=== PATIENT | male | born 1985 ===

== ENCOUNTER 2024-12-12 09:02 | Outpatient (AMB) | payer OTHER, SELFPAY ==
--- NOTE | 2024-12-12 09:05 | MHC.OFFVIS ---
Vital Signs 12/12/24 09:20 Height 5 ft 9 in Weight 321 lb 6.943 oz BMI 47.5 BP 132/76 Blood Pressure Location Rt brachial Position Sitting Pulse 86 Pulse Source Pulse Oximeter Pulse Oximetry (%) 95 Oxygen Delivery Method Room Air Intake Visit Reasons: Rectal bleeding Intake Note: NEW PATIENT for initial eval rectal bleeding. Prior hx of colo/egd? N Chief Complaint; C/O BRB per rectum, hx of hemorrhoids w/ hemorrhoidectomy. Pt reports constipation and hemorrhoids worsening lately despite treatment per PCP. GERD well controlled w/ PPI. Instrumentation Tech Required: No Accompanied by: Significant Other Allergies lisinopril Adverse Reaction (Mild, Verified 12/12/24 09:09) Cough Medication List - Last Reconciled 12/12/24 by TERRANCE Suarez dulaglutide (Trulicity) mg subcut ferrous sulfate 324 mg PO DAILY losartan mg PO DAILY metformin mg PO BID pantoprazole mg PO DAILY HPI HPI Rectal bleeding: Details: 39-year-old male with past medical history of diabetes, hyperlipidemia, hypertension, GERD, anxiety is here today for initial consultation. Patient is accompanied by his . Patient reports abdominal pain and cramping, constipation were no bowel movements for 2-3 days. Patient was given stool softener by PCP. Worked for 2-3 days and then he continues to be constipated. Blood in the stool after bowel movement. History of hemorrhoidectomy over a decade ago. Patient also reports acid reflux on pantoprazole. Patient reports that his symptoms are well controlled when he takes it. Patient does admit occasional acid reflux depending on what he eats. Patient reports family history of CRC. Paternal grandfather was diagnosed with colorectal cancer and prostate cancer. [facility] Medical History (Updated 12/12/24 @ 09:32 by TERRANCE Suarez) Internal hemorrhoid Anxiety and depression GERD (gastroesophageal reflux disease) Proteinuria HLD (hyperlipidemia) HTN (hypertension) Diabetes mellitus Surgical History History of appendectomy H/O hemorrhoidectomy Family History Paternal Grandfather Prostate cancer Social History Alcohol intake: former Patient Tobacco Use Status: Former Tobacco user Use of substances other than those prescribed or required for medical reasons: Unknown Review of Systems Const Denies weight gain and Denies weight loss ENT Reports no additional complaints, Denies dysphagia and Denies odynophagia Card Reports no additional complaints Resp Reports no additional complaints GI Denies abdominal pain, Denies belching, Denies melena, Denies bloating, Denies change in bowel habits, Denies dysphagia, Denies excessive flatus, Denies dyspepsia, Denies heartburn, Denies diarrhea, Denies loose stools, Denies nausea, Denies odynophagia and Denies vomiting Reports no additional complaints Musc Reports no additional complaints Neuro Reports no additional complaints Psych Reports no additional complaints Endo Reports no additional complaints Physical Exam Vital Signs: Last Vital Signs Pulse 86 12/12/24 09:20 BP 132/76 12/12/24 09:20 Pulse Ox 95 12/12/24 09:20 Oxygen Delivery Method Room Air 12/12/24 09:20 BMI result Body Mass Index 47.5 Const General: healthy appearing and no acute distress Nutritional Appearance: obese Orientation/consciousness: patient oriented x3 Resp Effort & Inspection: normal respiratory effort, able to speak in complete sentences, no tracheal deviation and symmetric chest movement Auscultation: clear to auscultation bilaterally Cardio Rate: regular rate GI Inspection: Yes normal to inspection, No distended and Yes obesity Palpation (GI): Soft to palpation, not firm, nontender and No hepatosplenomegaly present Auscultation: normal bowel sounds General: Yes no CVA tenderness Back/Spine/Pelvis Back: no CVA tenderness Skin General skin exam: elasticity normal, turgor normal and dry skin Neuro General: patient oriented x3 Psych Appearance: grossly normal Mental Status: mental status grossly normal Assessment & Plan Assessment & Plan (1) Internal hemorrhoid: Code(s): K64.8 - Other hemorrhoids Category: Medical (2) Rectal bleed: Code(s): K62.5 - Hemorrhage of anus and rectum (3) GERD (gastroesophageal reflux disease): Code(s): K21.9 - Gastro-esophageal reflux disease without esophagitis Qualifiers: Esophagitis presence: esophagitis presence not specified Qualified Code(s): K21.9 - Gastro-esophageal reflux disease without esophagitis (4) Constipation: Code(s): K59.00 - Constipation, unspecified Qualifiers: Constipation type: slow transit constipation Qualified Code(s): K59.01 - Slow transit constipation (5) Postprandial abdominal bloating: Code(s): R14.0 - Abdominal distension (gaseous) Plan Patient will continue taking omeprazole daily. Avoid dietary triggers and late night snacking. Staying upright for minimum 3 hours after meals discussed with patient. Patient was encouraged to start taking Dulcolax daily. Increase fluid intake and activity to promote better bowel motility. Patient reports epigastric pain occasionally will send him to check transglutaminase to rule out celiac. Will check thyroid study, check vitamin-D, B12 and folate. Script for Proctosol send. Patient will return in 2 months we will discuss going for colonoscopy. Both patient and his are agreeable to plan of care and verbalizes understanding of instructions. They were given the opportunity to ask questions and all questions answered. Thank you for allowing me to participate in his care. Orders: Orders Transglutaminase IgA Today R10.9 - Unspecified abdominal pain TSH reflex Free T4 Today K59.00 - Constipation, unspecified Vitamin D 25-OH (D2 and D3) Today E55.9 - Vitamin D deficiency, unspecified Vitamin B12 and Folate Today R19.7 - Diarrhea, unspecified Medications: New bisacodyl (Dulcolax (bisacodyl)) 10 mg (2 x 5 mg) PO BEDTIME 180 tabs 4RF hydrocortisone 2.5% (Proctosol HC) 1 appl [place] BID-QID PRN 30 grams 2RF hemorrhoids K64.9 - Unspecified hemorrhoids Coding Level of Care Code New Pt Level 4 (40119) Diagnoses Internal hemorrhoid K64.8 Rectal bleed K62.5 Gastroesophageal reflux disease, unspecified whether esophagitis present K21.9 Esophagitis presence: esophagitis presence not specified Slow transit constipation K59.01 Constipation type: slow transit constipation Postprandial abdominal bloating R14.0 Time Spent (min) 45 Comment 35 minutes spent with patient and additional 10 minutes spent reviewing his records
[2024-12-12 09:20] VITALS: BP 132/76; PULSE 86; O2SAT 95; BMI 47.5
== END 2024-12-12 09:26 | disposition home or self-care (01) ==
PROVIDERS: PCP Physician Assistant Medical; Visit Provider Nurse Practitioner Family
DX: K64.8 Other hemorrhoids (principal); K62.5 Hemorrhage of anus and rectum; K21.9 Gastro-esophageal reflux disease without esophagitis; K59.01 Slow transit constipation; R14.0 Abdominal distension (gaseous)
CPT/HCPCS: 99204

== ENCOUNTER → 2024-12-12 09:02 | Outpatient (BNVA) | payer OTHER, SELFPAY | PROVIDERS: PCP Physician Assistant Medical; Visit Provider Nurse Practitioner Family ==

== ENCOUNTER 2024-12-16 10:53 | Outpatient (REF) | payer OTHER, SELFPAY ==
[2024-12-16 12:56] LABS: TSH reflex Free T4 4.32 uIU/mL (0.32-4.0)
[2024-12-16 13:13] LABS: Folate 11.8 ng/mL (> or = 4.0); Vitamin B12 387 pg/mL (200-900)
[2024-12-16 13:42] LABS: Free T4 (Free Thyroxine) 1.02 ng/dL (0.71-1.85)
[2024-12-21 13:53] LABS: Transglutaminase IgA <1.0 U/mL
[2024-12-22 13:38] LABS: Vitamin D 25-OH, D2 <4 ng/mL; Vitamin D 25-OH, D3 17 ng/mL; Vitamin D 25-OH, Total 17 ng/mL (30-100)
== END 2024-12-16 10:54 | disposition home or self-care (01) ==
LOC: HO.LAB 10:53
PROVIDERS: PCP Internal Medicine; Visit Provider Nurse Practitioner Family
DX: K59.00 Constipation, unspecified (principal); R10.9 Unspecified abdominal pain; R19.7 Diarrhea, unspecified; E55.9 Vitamin D deficiency, unspecified
CPT/HCPCS: 36415; 82306; 82607; 82746; 84439; 84443; 86364

== ENCOUNTER 2025-03-15 16:00 | Outpatient (AMB) | payer OTHER, SELFPAY ==
--- NOTE | 2025-03-15 16:10 | A.OFFVIS_ITS ---
Vital Signs 03/15/25 16:19 Height 5 ft 9 in Weight 321 lb BMI 47.4 BP 136/86 Blood Pressure Location Rt brachial Position Sitting Pulse 90 Pulse Source Pulse Oximeter Pulse Oximetry (%) 96 Oxygen Delivery Method Room Air Intake Visit Reasons: f/u gerd cons internal hem Intake Note: Established patient for mgmt of GERD + Constipation w/ hemorrhoids. CC: C.O. persistence of rectal bleeding despite current tx plan. Pt does report improvements of constipation and GERD with current tx. No additional sx or concerns at this time. Network Systems Consultant Required: No Accompanied by: Spouse Allergies lisinopril Adverse Reaction (Mild, Verified 03/15/25 16:10) Cough HPI HPI f/u gerd cons internal hem: Details: LAST VISIT: Internal hemorrhoid Rectal bleed GERD (gastroesophageal reflux disease) Constipation Postprandial abdominal bloating Plan Patient will continue taking omeprazole daily. Avoid dietary triggers and late night snacking. Staying upright for minimum 3 hours after meals discussed with patient. Patient was encouraged to start taking Dulcolax daily. Increase fluid intake and activity to promote better bowel motility. Patient reports epigastric pain occasionally will send him to check transglutaminase to rule out celiac. Will check thyroid study, check vitamin-D, B12 and folate. Script for Proctosol send. Patient will return in 2 months we will discuss going for colonoscopy. Both patient and his are agreeable to plan of care and verbalizes understanding of instructions. They were given the opportunity to ask questions and all questions answered. ? Thank you for allowing me to participate in his care. Orders Orders Transglutaminase IgA Today R10.9 TSH reflex Free T4 Today K59.00 Vitamin D 25-OH (D2 and D3) Today E55.9 Vitamin B12 and Folate Today R19.7 Medications New bisacodyl (Dulcolax (bisacodyl)) 10 mg (2 x 5 mg) PO BEDTIME 180 tabs 4RF hydrocortisone 2.5% (Proctosol HC) 1 appl [place] BID-QID PRN 30 grams 2RF hemorrhoids K64.9 TODAY'S VISIT Patient is here today for follow-up. Patient reports to be feeling fairly you well since last seen. Patient is taking omeprazole and reports that for the most part his symptoms of acid reflux are suppressed. He is trying to avoid dietary triggers. States that Dulcolax is working for him. Patient is moving his bowels better now. He reports to have occasional blood in the stool. Patient denies straining or having hard stools. Patient denies melena. Denies any family history of CRC. No issues with anesthesia in the past. Not on any anticoagulation medication. No history of sleep apnea. [facility] Medical History (Updated 03/16/25 @ 20:10 by Iliana Deglado [facility]) Constipation Internal hemorrhoid Anxiety and depression GERD (gastroesophageal reflux disease) Proteinuria HLD (hyperlipidemia) HTN (hypertension) Diabetes mellitus Surgical History History of appendectomy H/O hemorrhoidectomy Family History Paternal Grandfather Prostate cancer Social History Alcohol intake: former Patient Tobacco Use Status: Former Tobacco user Review of Systems Const Denies weight gain and Denies weight loss ENT Reports no additional complaints, Denies dysphagia and Denies odynophagia Card Reports no additional complaints Resp Reports no additional complaints GI Denies abdominal pain, Denies belching, Denies melena, Denies bloating, Reports hematochezia (Occasional), Denies change in bowel habits, Denies dysphagia, Denies excessive flatus, Denies dyspepsia, Denies heartburn, Denies diarrhea, Denies loose stools, Denies nausea, Denies odynophagia and Denies vomiting Reports no additional complaints Musc Reports no additional complaints Neuro Reports no additional complaints Psych Reports no additional complaints Endo Reports no additional complaints Physical Exam Vital Signs: Last Vital Signs Pulse 90 03/15/25 16:19 BP 136/86 03/15/25 16:19 Pulse Ox 96 03/15/25 16:19 Oxygen Delivery Method Room Air 03/15/25 16:19 BMI result Body Mass Index 47.4 Const General: healthy appearing and no acute distress Nutritional Appearance: obese Orientation/consciousness: patient oriented x3 Resp Effort & Inspection: normal respiratory effort, able to speak in complete sentences, no tracheal deviation and symmetric chest movement Auscultation: clear to auscultation bilaterally Cardio Rate: regular rate GI Inspection: Yes normal to inspection, No distended and Yes obesity Palpation (GI): Soft to palpation, not firm, nontender and No hepatosplenomegaly present Auscultation: normal bowel sounds General: Yes no CVA tenderness Back/Spine/Pelvis Back: no CVA tenderness Skin General skin exam: elasticity normal, turgor normal and dry skin Neuro General: patient oriented x3 Psych Appearance: grossly normal Mental Status: mental status grossly normal Results Reviewed Results Reviewed: Laboratory Tests 12/16/24 11:17 Vitamin B12 387 25-OH Vitamin D Total 17 L Folate 11.8 TSH 4.32 H Free T4 1.02 Tiss Transglutamin IgA <1.0 Assessment & Plan Assessment & Plan (1) Internal hemorrhoid: Code(s): K64.8 - Other hemorrhoids Category: Medical (2) GERD (gastroesophageal reflux disease): Code(s): K21.9 - Gastro-esophageal reflux disease without esophagitis Category: Medical Qualifiers: Esophagitis presence: esophagitis presence not specified Qualified Code(s): K21.9 - Gastro-esophageal reflux disease without esophagitis (3) Constipation: Code(s): K59.00 - Constipation, unspecified Category: Medical Qualifiers: Constipation type: slow transit constipation Qualified Code(s): K59.01 - Slow transit constipation (4) Rectal Hemorrhage: Code(s): K62.5 - Hemorrhage of anus and rectum Plan Patient will continue with omeprazole. Continue avoiding dietary triggers and late night snacking. Will order upper endoscopy to re-evaluate for gastritis, esophagitis, Barretts. Patient will be sent for colonoscopy as he continues to have occasional rectal bleeding. Denies any family history of CRC. Will also refer him to General surgery to evaluate his hemorrhoids to see if he qualifies for hemorrhoidectomy. Patient denies any issues with anesthesia in the past. No history of sleep apnea. Not on any anticoagulation medication. What to expect before during and after procedure discussed with patient. Stressed the importance of good bowel prep and clear liquid diet day before procedure. I will see patient after the procedure, sooner on as needed basis. He is agreeable to this plan and verbalizes understanding of instructions. He was given the opportunity to ask questions and all questions answered. Thank you for allowing me to participate in his care Orders: Referrals General Surgery Referral K64.8 - Other hemorrhoids Medications: New polyethylene glycol 3350 (Miralax) As directed by gastroenterology department at [facility] 238 grams PO ONCE 238 grams 0RF Z12.11 - Encounter for screening for malignant neoplasm of colon Coding Level of Care Code Est Pt Level 4 (83971) Complex EM visit Add On G2211 Diagnoses Internal hemorrhoid K64.8 Gastroesophageal reflux disease, unspecified whether esophagitis present K21.9 Esophagitis presence: esophagitis presence not specified Slow transit constipation K59.01 Constipation type: slow transit constipation Rectal Hemorrhage K62.5 Time Spent (min) 35 Comment 25 minutes spent with patient and additional 10 minutes spent reviewing his records
[2025-03-15 16:19] VITALS: BP 136/86; PULSE 90; O2SAT 96; BMI 47.4
--- OUTSIDE RECORDS SUMMARY | 2025-03-15 18:36 | XMS_ITS | Clinical Summary ---
Author Organization [facility] [address] [facility] lding Address [address] [place] [address] Phone Care Team Providers Care Crosscutter Name Role Phone Usama Gonzalez MD Primary Care Provider [phone] Allergies Active Allergy Reactions Criticality Noted Date Comments Lisinopril Cough High 11/12/2023 Cannot sleep Medications blood-glucose meter kit Check sugars twice daily 06/22/20 20 Active ONETOUCH ULTRASOFT LANCETS MISC Inject 1 Device into the skin 2 times daily as needed (to test blood sugars). Use to check blood sugar levels. 07/20/20 20 Active OneTouch Ultra Test test strip USED TO CHECK BLOOD SUGAR LEVELS TWICE DAILY. 09/18/20 20 Active bisacodyL (DULCOLAX) 5 mg EC tablet Take 2 tablets by mouth right before your first dose of liquid prep. 07/20/20 23 Active pantoprazole (PROTONIX) 20 mg EC tablet TAKE 1 TABLET BY MOUTH DAILY 90 tablet 3 08/15/20 24 Active dulaglutide (Trulicity) 1.5 mg/0.5 mL pen injector injectionIndicat ions:Type 2 diabetes mellitus without complication, without long-term current use of insulin ([facility] V24, CMS/HCC V28) Inject 0.5 mL (1.5 mg total) under the skin 1 (one) time per week. 6 mL 1 09/02/20 24 Active docusate sodium (Colace) 100 mg capsuleIndicatio ns:Constipation, unspecified constipation type Take 1 capsule (100 mg total) by mouth 2 (two) times a day if needed for constipatio n. 180 each 09/02/20 24 Active ferrous sulfate 324 mg (65 mg elemental iron) EC tablet TAKE 1 TABLET BY MOUTH EVERY DAY 90 tablet 1 09/27/19 25 Active metFORMIN (GLUCOPHAGE) 1,000 mg tablet TAKE 1 TABLET BY MOUTH TWICE DAILY WITH MEALS 180 tablet 1 10/07/19 25 Active losartan (COZAAR) 25 mg tablet Take 2 tablets (50 mg total) by mouth 1 (one) time each day. 90 tablet 1 02/02/20 25 Active naproxen (NAPROSYN) 250 mg tablet TAKE 1 TABLET BY MOUTH TWICE DAILY WITH MEALS FOR 14 DAYS 28 tablet 03/06/20 25 Active naproxen (NAPROSYN) 250 mg tablet Take 1 tablet (250 mg total) by mouth 2 (two) times a day with meals for 14 days. 28 tablet 02/02/20 25 025 Discontinued Active Problems Problem Noted Date Diagnosed Date Gastroesophageal reflux disease without esophagi tis 04/11/2022 Proteinuria 06/22/2020 Hypertension 06/21/2020 Morbid obesity ([facility] V24, [facility] V28) 2019 Type 2 diabetes mellitus ([facility] V24, [facility] V 28) 06/21/2020 Depression with anxiety 02/24/2012 Overview (08/08/2024): Goes to [facility]- sees counsellor Gabriella Higgins Encounters Date Type Department Care Team Description 02/01/2025 2:30 PM EDT Office Visit Adult Medicine [facility] [address] [place] [address] Marie Xiong NP Primary hypertension (Primary Dx); Dislocation of temporomandibular joint, initial encounter; Type 2 diabetes mellitus without complication, without long-term current use of insulin ([facility] V24, [facility] V28); Gastroesophageal reflux disease without esophagitis 01/30/2025 Telephone Adult Medicine [facility] [address] [place] [address] Usama Gonzalez MD Hypertension from Last 3 Months Immunizations Name Administration Dates Next Due Influenza Quadravalent, MDCK , 0.5ml, preservative free (Flucelvax) 6mo and older 06/21/2020 Influenza trivalent, 0.5mL, preservative free (Fluarix; FluLaval; Fluzone) ages 6mo and older (Afluria) 3 years and older 06/13/2022 Influenza trivalent, with pr eservative (Fluzone; Afluria) 6mo and older 07/08/2024 Tdap Tetanus diptheria acell ular pertussis (Boostrix; Adacel) 7yo and older 11/12/2023,02/24/2012 Surgical History Surgery Date Site/Laterality Comments OTHER SURGICAL HISTORY 2010 PROCEDURE: [facility] HEMORRHOIDECTOMY XTRNL 2/> COLUMN/GROUP APPENDECTOMY PROCEDURE: HISTORICAL APPENDECTOMY; COMMENT: age 7 yr Medical History Medical History Date Comments Rectal bleeding DX:Rectal bleedi ng Blood in stool DX:Blood in stoo l History of hemorrhoidectomy DX:H istory of hemorrhoidectomy Diabetes mellitus type 2, co ntrolled, with complications (CMS/HCC V24, CMS/HCC V28) DX:Diabetes mellitus type 2, controlled, with complications ([facility]) Essential hypertension DX:Essent ial hypertension Family History Medical History Relation Name Comments Other: Healthy Brother 1 X3 Diabetes Father Depression Depression Mother HTN, anxiety Colon cancer Paternal Grandfather Other: cognitive delay Son 1 Relation Name Status Comments Brother 1 Brother 2 Alive X3 Father Alive Maternal Grandfather Alive Maternal Grandmother Alive Mother Alive Paternal Grandfather Paternal Grandmother Alive Son 1 Son 2 Alive Son 3 Alive Social History Tobacco Use Types Packs/Day Years Used Date Smoking Tobacco: Former Cigarettes Q uit: 09/21/2001 Smokeless Tobacco: Never Tobacco Cessation:Counseling Given: Not Answered Alcohol Use Standard Drinks/Week Comments No 0 (1 standard drink = 0.6 oz pur e alcohol) Housing Instability Answer Date Recorde d Are you worried that in the next 2 months you may not have stable housing? No 01/31/2025 Food Access & Nutrition Answer Date Rec orded Do you have access to a vari ety of food including fruits and vegetables? Yes 01/31/2025 Health Literacy Answer Date Recorded How often do you need to hav e someone help you when you read instructions, pamphlets, or other written material from your doctor or pharmacy? Sometimes 01/31/2025 Caregiver: How often do you need to have someone help you when you read instructions, pamphlets, or other written material from your doctor or pharmacy? Not on file 01/31/2025 Financial Risk Answer Date Recorded How hard is it for you to pa y for the very basics like food, housing, medical care, and air conditioning / heating? Very hard 01/31/2025 Transportation Answer Date Recorded Has the lack of transportati on kept you from meetings, work, or from getting things needed for daily living? No Has the lack of transportati on kept you from medical appointments or from getting medications? No 01/31/2025 Social Isolation Answer Date Recorded How often do you feel lonely or isolated from th ose around you? Never 01/31/2025 Food Risk Answer Date Recorded Within the past 12 months we worried whether our food would run out before we got money to buy more. Never true 01/31/2025 Within the past 12 months th e food we bought just didn't last and we didn't have money to get more. Never true 01/31/2025 Dependent Care Answer Date Recorded Do you need help finding or paying for care for your loved ones. For example, salesperson children's shoes or elderly care for an older adult? No 01/31/2025 Education Answer Date Recorded Do you think completing more education or training, like finishing a GED, going to college, or learning a trade, would be helpful for you? N/A 01/31/2025 Employment and Income Answer Date Recor ded During the last four weeks, have you been actively looking for work? No 01/31/2025 Living Situation Answer Date Recorded What is your living situation? 0 01/31/2025 Sex and Gender Information Value Date Recorded Sex Assigned at Not on file Legal Sex Male 4:32 AM EST Gender Identity Not on file Sexual Orientation Not on file Obstetrics History Last Filed Vital Signs Vital Sign Reading Time Taken Comments Blood Pressure 120/78 02/01/2025 2:17 PM EDT Pulse 100 02/01/2025 2:17 PM EDT Temperature 36.2 C (97.1 F) 02/01/2025 2:17 PM EDT Respiratory Rate - - Oxygen Saturation - - Inhaled Oxygen Concentration - - Weight 139 kg (306 lb) 02/01/2025 2:17 PM EDT Height 177.8 cm (5' 10 ) 02/01/2025 2:17 PM EDT Body Mass Index 43.91 02/01/2025 2:17 PM EDT Plan of Treatment Upcoming Encounters Date Type Department Care Team (Late st Contact Info) Description 04/03/2025 8:30 AM EDT Office Visit Adult Medicine - [place] [address] [place] [place] [id number] Danette Cruz PA [address] [place] [address] Health Maintenance Due Date Last Done Comments Diabetes: Annual Retina Eye Exam 1994 Hepatitis B Vaccines (1 of 3 - 19+ 3-dose series) 2003 Pneumococcal Vaccine: Pediatrics (0 to 5 Years) and At-Risk Patients (6 to 64 Years) (2 of 2 - PCV) 07/11/2017 07/11/2016 HIV Screening 08/30/2022 Hepatitis C Screening 08/30/2022 COVID-19 Vaccine ( season) 2024 10/03/2021, 02/28/2021, 01/31/2021 Diabetes: Annual Urine Albumin-Creatinine Ratio (uACR) 11/12/2024 11/12/2023 Diabetes: Annual Foot Exam 11/12/2024 11/12/2023 Diabetes: Blood Sugar Control Test (HGBA1C) 03/03/2025 09/02/2024, 03/16/2024, 03/16/2024 Diabetes: Annual GFR (Glomerular Filtration Rate) 09/02/2025 09/02/2024, 11/12/2023 Hypertension/CHF/CAD Annual BMP Blood Test 09/02/2025 09/02/2024, 11/12/2023 Depression Screening 01/31/2026 01/31/2025 Social Influencers of Health Screening 01/31/2026 01/31/2025 Cholesterol Screening (Lipid Panel) 09/02/2029 09/02/2024, 11/12/2023 DTaP,Tdap,and Td Vaccines (3 - Td or Tdap) 11/12/2033 11/12/2023, 02/24/2012 Influenza Vaccine Completed 07/08/2024, , 06/13/2022, Additional history exists HIB Vaccines Aged Out No longer eligi ble based on patient's age to complete this topic HPV Vaccines Aged Out No longer eligi ble based on patient's age to complete this topic Hepatitis A Vaccines Aged Out No long er eligible based on patient's age to complete this topic IPV Vaccines Aged Out No longer eligi ble based on patient's age to complete this topic MMR Vaccines Aged Out No longer eligi ble based on patient's age to complete this topic Meningococcal ACWY Vaccine Aged Out N o longer eligible based on patient's age to complete this topic Meningococcal B Vaccine Aged Out No l onger eligible based on patient's age to complete this topic RSV Immunization Patients Under 20 months Aged Out No longer eligible based on patient's age to complete this topic Varicella Vaccines Aged Out No longer eligible based on patient's age to complete this topic Procedures Procedure Name Priority Date/Time Associated Diagnosis Comments BASIC METABOLIC PANEL Routine 09/02/2024 10:32 AM EST Type 2 diabetes mellitus without complication, without long-term current use of insulin ([facility] V24, [facility] V28) Primary hypertension HEMOGLOBIN A1C Routine 09/02/2024 10:32 AM EST Type 2 diabetes mellitus without complication, without long-term current use of insulin ([facility] V24, [facility] V28) LIPID PANEL WITH REFLEX TO DIRECT LDL Routine 09/02/2024 10:32 AM EST Type 2 diabetes mellitus without complication, without long-term current use of insulin ([facility] V24, [facility] V28) URINE ALBUMIN CREATININE RATIO Routine 11/12/2023 DIABETES FOOT EXAM Routine 11/12/2023 from Last 3 Months or Most Recently Relevant to Health Maintenance Results * (ABNORMAL) Lipid panel with reflex to direct LDL (09/02/2024 10:32 AM EST) [facility] Cholesterol 146 0 - 200 mg/dL LAB CHEMISTRY METHOD 09/02/2024 12:32 PM EST [facility] Triglycerides 130 0 - 150 mg/dL LAB CHEMISTRY METHOD 09/02/2024 12:32 PM EST [facility] HDL 38(L) >=40 mg/dL LAB CHEMISTRY METHOD 09/02/2024 12:32 PM [facility] LDL Calculated 82 0 - 100 mg/dL LAB CHEMISTRY METHOD 09/02/2024 12:32 PM [facility] VLDL Cholesterol Jonh 26 mg/dL LAB CHEMISTRY METHOD 09/02/2024 12:32 PM [facility] Non HDL Chol. (LDL+VLDL) 108 <145 mg/dL LAB CHEMISTRY METHOD 09/02/2024 12:32 PM [facility] Chol/HDL Ratio 3.8 0.0 - 4.4 LAB CHEMISTRY METHOD 09/02/2024 12:32 PM [facility] Blood Venous blood specimen / Unknown Venipuncture / Unknown 09/02/2024 10:32 AM EST 09/02/2024 10:32 AM EST us [facility] LAB BLOOD ORDERABLES Final Result [facility] [address] [place] [address], [place] [phone] * Hemoglobin A1c (09/02/2024 10:32 AM EST) Hemoglobin A1C 5.8 <6.5 % LAB CHEMISTRY METHOD 09/02/2024 2:14 PM [facility] Mean Bld Glu Estim. 120 mg/dL LAB CHEMISTRY METHOD 09/02/2024 2:14 PM [facility] Blood Venous blood specimen / Unknown Venipuncture / Unknown 09/02/2024 10:32 AM EST 09/02/2024 10:32 AM EST us [facility] LAB BLOOD ORDERABLES Final Result [facility] [address] [place] [address], * (ABNORMAL) Basic metabolic panel (09/02/2024 10:32 AM EST) Sodium 141 133 - 145 mmol/L LAB CHEMISTRY METHOD 09/02/2024 12:32 PM EST [facility] Potassium 4.2 3.5 - 5.5 mmol/L LAB CHEMISTRY METHOD 09/02/2024 12:32 PM [facility] Chloride 106 96 - 110 mmol/L LAB CHEMISTRY METHOD 09/02/2024 12:32 PM [facility] CO2 28 21 - 32 mmol/L LAB CHEMISTRY METHOD 09/02/2024 12:32 PM [facility] Anion Gap 7 3 - 11 LAB CHEMISTRY METHOD 09/02/2024 12:32 PM [facility] Glucose 101(H) 70 - 100 mg/dL LAB CHEMISTRY METHOD 09/02/2024 12:32 PM [facility] BUN 17 5 - 25 mg/dL LAB CHEMISTRY METHOD 09/02/2024 12:32 PM [facility] Creatinine 0.73 0.70 - 1.30 mg/dL LAB CHEMISTRY METHOD 09/02/2024 12:32 PM [facility] eGFR 118 >=60 mL/min/1. 73m2 LAB CHEMISTRY METHOD 09/02/2024 12:32 PM [facility] Comment:Calculation based on the Chronic Kidney Disease Epidemiology Collaboration (CKD-EPI) equation refit without adjustment for race. BUN/Creatinine Ratio 23.3 LAB CHEMISTRY METHOD 09/02/2024 12:32 PM [facility] Calcium 9.1 8.5 - 10.5 mg/dL LAB CHEMISTRY METHOD 09/02/2024 12:32 PM [facility] Blood Venous blood specimen / Unknown Venipuncture / Unknown 09/02/2024 10:32 AM EST 09/02/2024 10:32 AM EST [facility] LAB BLOOD ORDERABLES Final Result [facility] [address] [place] [address], [place] [phone] * Urine Albumin Creatinine Ratio (11/12/2023) Urine Albumin Creatinine Ratio Abstracted Historical Provider MD HEALTH MAINTENANCE Final Result * Diabetes Foot Exam (11/12/2023) Diabetes: Annual Foot Exam Abstracted Historical Provider HEALTH MAINTENANCE Final Result from Last 3 Months or Most Recently Relevant to Health Maintenance Insurance [facility] [place]PER [id number] Care Teams Crosscutter Relationship Specialty Start Date End Date Usama Gonzalez MD [address] [place] [address] PCP - General Internal Medicine 04/23/21
== END 2025-03-15 18:10 | disposition home or self-care (01) ==
LOC: HO.HGI 16:00
PROVIDERS: PCP Internal Medicine; Visit Provider Nurse Practitioner Family
DX: K64.8 Other hemorrhoids (principal); K21.9 Gastro-esophageal reflux disease without esophagitis; K59.01 Slow transit constipation; K62.5 Hemorrhage of anus and rectum
CPT/HCPCS: 99214

== ENCOUNTER 2025-04-27 10:34 | Outpatient (AMB) | payer OTHER, SELFPAY ==
--- NOTE | 2025-04-27 10:35 | MHC.OFFVIS ---
Vital Signs 04/27/25 10:41 Height 5 ft 9 in Weight 319 lb BMI 47.1 BP 138/93 H Blood Pressure Location Rt brachial Position Sitting Pulse 108 H Intake Visit Reasons: internal hemorrhoids Intake Note: Patient referred by Iliana BAÑUELOS for evaluation of internal hemorrhoids. Patient c/o: bleeding after BM. Reports improvement with Proctosol cr. Hx of hemorrhoidectomy many yrs ago. Director Work Required: No Accompanied by: spouse Lauren Allergies lisinopril Adverse Reaction (Mild, Verified 04/27/25 10:39) Cough HPI HPI internal hemorrhoids: Details: 40-year-old male referred for passage of bright blood per rectum. He said that he had hemorrhoid surgery about 13 years ago. He said that since that time, he would notice small amounts of blood per rectum with bowel movements. He says this has been going on without any significant changes for about 13 years now. He said the blood can be in large amounts once in a while. He denies any pain with bowel movements. He admits to frequent constipation. He also says he has never had any colonoscopy in the past. He says that his grandfather had colon cancer at around the age of 65. [facility] Medical History (Updated 04/27/25 @ 10:54 by Xavi Ruano MD) Morbid obesity Internal hemorrhoids with complication Constipation Internal hemorrhoid Anxiety and depression GERD (gastroesophageal reflux disease) Proteinuria HLD (hyperlipidemia) HTN (hypertension) Diabetes mellitus Surgical History History of appendectomy H/O hemorrhoidectomy Family History Paternal Grandfather Prostate cancer Social History Alcohol intake: former Patient Tobacco Use Status: Former Tobacco user Review of Systems Const Denies chills and Denies fever(s) Card Denies chest pain, Denies dyspnea and Denies dyspnea on exertion Resp Denies cough, Denies dyspnea and Denies dyspnea on exertion GI Reports hematochezia, Denies change in bowel habits and Reports constipation Denies hematuria and Denies difficulty urinating Musc Denies back pain and Denies limited range of motion Neuro Denies focal weakness and Denies convulsions Psych Denies depression and Denies mood swings Physical Exam Vital Signs: Last Vital Signs Pulse 108 H 04/27/25 10:41 BP 138/93 H 04/27/25 10:41 BMI result Body Mass Index 47.1 Const Other: Morbidly obese General: comfortable and no acute distress Orientation/consciousness: patient oriented x3 Neck Neck: Yes no lymphadenopathy Resp Auscultation: clear to auscultation bilaterally Cardio Rhythm: regular rhythm GI Other: Has a large large pannus Rectal exam shows non bulky external hemorrhoid on the right side Palpation (GI): Soft to palpation, nontender and no guarding Neuro General: patient oriented x3 Office Procedures Anoscopy He was in kneeling jeyson-knife position. The anoscope was gently inserted. A full examination of the anal canal was done. He did have some small internal hemorrhoids. There was no active bleeding. There was no fissure or ulceration. There were no lesions seen. There was no induration on digital exam. [id number] Assessment & Plan Assessment & Plan (1) Internal hemorrhoids with complication: Code(s): K64.8 - Other hemorrhoids Category: Medical Plan: He describes periodic passage of small amounts of bright blood per rectum with bowel movements. This appears to be likely come from the internal hemorrhoids. He does not have bulky hemorrhoidal columns. He says that he would like to have a colonoscopy as well. I told him that he should discuss this with the primary care physician. This may be reasonable to do. I told him that at this time, recommend him to be on stool softeners for his bowel movements with constipation. I explained to him that if he does have worsening problems he needs to be re-evaluated down the line for his hemorrhoidal bleeding, should come back to the office. I had a long discussion with him as well about the benefits of weight loss especially in view of his diabetes. Medications: New psyllium seed (sugar) (Metamucil (sugar) oral powder) 1 tbsp PO BID 1,254 grams 0RF Coding Diagnoses Internal hemorrhoids with complication K64.8 CPT Codes Details - CPT: [id number] ([id number])
[2025-04-27 10:41] VITALS: BP 138/93; PULSE 108; BMI 47.1
--- OUTSIDE RECORDS SUMMARY | 2025-04-27 11:11 | XMS_ITS | Clinical Summary ---
Author Organization [facility] [address] [facility] lding Address [address] [place] [address] Phone Care Team Providers Care Lead Javascript Engineer Name Role Phone Usama Gonzalez MD Primary Care Provider [phone] Allergies Active Allergy Reactions Criticality Noted Date Comments Lisinopril Cough High 11/12/2023 Cannot sleep Medications blood-glucose meter kit Check sugars twice daily 0 Active ONETOUCH ULTRASOFT LANCETS MISC Inject 1 Device into the skin 2 times daily as needed (to test blood sugars). Use to check blood sugar levels. 0 Active OneTouch Ultra Test test strip USED TO CHECK BLOOD SUGAR LEVELS TWICE DAILY. 0 Active bisacodyL (DULCOLAX) 5 mg EC tablet Take 2 tablets by mouth right before your first dose of liquid prep. 3 Active pantoprazole (PROTONIX) 20 mg EC tablet TAKE 1 TABLET BY MOUTH DAILY 90 tablet 3 4 Active docusate sodium (Colace) 100 mg capsuleIndication s:Constipation, unspecified constipation type Take 1 capsule (100 mg total) by mouth 2 (two) times a day if needed for constipation . 180 each 4 Active ferrous sulfate 324 mg (65 mg elemental iron) EC tablet TAKE 1 TABLET BY MOUTH EVERY DAY 90 tablet 1 5 Active losartan (COZAAR) 25 mg tablet Take 2 tablets (50 mg total) by mouth 1 (one) time each day. 90 tablet 1 5 Active naproxen (NAPROSYN) 250 mg tablet TAKE 1 TABLET BY MOUTH TWICE DAILY WITH MEALS FOR 14 DAYS 28 tablet 5 Active dulaglutide (Trulicity) 1.5 mg/0.5 mL pen injector injectionIndicati ons:Type 2 diabetes mellitus without complication, without long-term current use of insulin ([facility] V24, [facility] V28) Inject 0.5 mL (1.5 mg total) under the skin 1 (one) time per week. 6 mL 1 5 Active metFORMIN (GLUCOPHAGE) 1,000 mg tablet TAKE 1 TABLET BY MOUTH TWICE DAILY WITH MEALS 180 tablet 1 5 Active Active Problems Problem Noted Date Diagnosed Date Gastroesophageal reflux disease without esophagi tis 04/11/2022 Proteinuria 06/22/2020 Hypertension 06/21/2020 Morbid obesity ([facility] V24, [facility] V28) 2019 Type 2 diabetes mellitus ([facility] V24, [facility] V 28) 06/21/2020 Depression with anxiety 02/24/2012 Overview (08/08/2024): Goes to [facility]- sees counsellor Gabriella Higgins Encounters Date Type Department Care Team Description 02/01/2025 2:30 PM EDT Office Visit Adult Medicine - [place] [address] [place] [address] Marie Xiong NP Primary hypertension (Primary Dx); Dislocation of temporomandibular joint, initial encounter; Type 2 diabetes mellitus without complication, without long-term current use of insulin ([facility] V24, [facility] V28); Gastroesophageal reflux disease without esophagitis 01/30/2025 Telephone Adult Medicine - [place] [address] [place] [address] Usama Gonzalez MD Hypertension from [...] Site/Laterality Comments OTHER SURGICAL HISTORY 2010 PROCEDURE: AL HEMORRHOIDECTOMY XTRNL 2/> COLUMN/GROUP APPENDECTOMY PROCEDURE: HISTORICAL APPENDECTOMY; COMMENT: age 7 yr Medical History Medical History Date Comments Rectal bleeding DX:Rectal bleedi ng Blood in stool DX:Blood in stoo l History of hemorrhoidectomy DX:H istory of hemorrhoidectomy Diabetes mellitus type 2, co ntrolled, with complications (CMS/HCC V24, CMS/HCC V28) DX:Diabetes mellitus type 2, controlled, with complications (HCC) Essential hypertension DX:Essent ial hypertension Family History [...] care for your loved ones. For example, child development associate teacher or elderly care for an older adult? [...] 02/01/2025 2:17 PM EDT Plan of Treatment Health Maintenance Due Date Last Done Comments Diabetes: Annual Retina Eye Exam 1994 Hepatitis B Vaccines (1 of 3 - 19+ 3-dose series) 2003 Pneumococcal Vaccine: Pediatrics (0 to 5 Years) and At-Risk Patients (6 to 49 Years) (2 of 2 - PCV) 07/11/2017 07/11/2016 HIV Screening 08/30/2022 Hepatitis C Screening 08/30/2022 COVID-19 Vaccine ( season) 2024 10/03/2021, 02/28/2021, 01/31/2021 Diabetes: Annual Urine Albumin-Creatinine Ratio (uACR) 11/12/2024 11/12/2023 Diabetes: Annual Foot Exam 11/12/2024 11/12/2023 Diabetes: Blood Sugar Control Test (HGBA1C) 03/03/2025 09/02/2024, 03/16/2024, 03/16/2024 Influenza Vaccine (#1) 2025 , 06/04/2024, 06/13/2022, Additional history exists Diabetes: Annual GFR (Glomerular Filtration Rate) 09/02/2025 09/02/2024, 11/12/2023 Hypertension/CHF/CAD Annual BMP Blood Test 09/02/2025 09/02/2024, 11/12/2023 Social Influencers of Health Screening 01/31/2026 01/31/2025 Cholesterol Screening (Lipid Panel) 09/02/2029 09/02/2024, 11/12/2023 DTaP,Tdap,and Td Vaccines (3 - Td or Tdap) 11/12/2033 11/12/2023, 02/24/2012 Depression Screening Completed 01/31/2025 HIB Vaccines Aged Out No longer eligi [...] complication, without long-term current use of insulin ([facility] V24, [facility] V28) Primary hypertension HEMOGLOBIN A1C Routine 09/02/2024 10:32 AM EST Type 2 diabetes mellitus without complication, without long-term current use of insulin ([facility] V24, [facility] V28) LIPID PANEL WITH REFLEX TO DIRECT LDL Routine 09/02/2024 10:32 AM EST Type 2 diabetes mellitus without complication, without long-term current use of insulin ([facility] V24, [facility] V28) URINE ALBUMIN CREATININE RATIO Routine 11/12/2023 DIABETES FOOT EXAM Routine 11/12/2023 from Last 3 Months or Most Recently Relevant to Health Maintenance Results * (ABNORMAL) Lipid panel with reflex to direct LDL (09/02/2024 10:32 AM EST) Cholesterol 146 0 - 200 mg/dL LAB CHEMISTRY METHOD 09/02/2024 12:32 PM [facility] Triglycerides 130 0 - 150 mg/dL LAB CHEMISTRY METHOD 09/02/2024 12:32 PM [facility] HDL 38(L) >=40 mg/dL LAB CHEMISTRY METHOD 09/02/2024 12:32 PM [facility] LDL Calculated 82 0 - 100 mg/dL LAB CHEMISTRY METHOD 09/02/2024 12:32 PM [facility] VLDL Cholesterol Jonh 26 mg/dL LAB CHEMISTRY METHOD 09/02/2024 12:32 PM [facility] Non HDL Chol. (LDL+VLDL) 108 <145 mg/dL LAB CHEMISTRY METHOD 09/02/2024 12:32 PM EST [facility] Chol/HDL Ratio 3.8 0.0 - 4.4 LAB CHEMISTRY METHOD 09/02/2024 12:32 PM EST [facility] Blood Venous blood specimen / Unknown Venipuncture / Unknown 09/02/2024 10:32 AM EST 09/02/2024 10:32 AM EST us [facility] BLOOD ORDERABLES Final Result Performing Organization Address City/[facility]/ZIP Co de Phone Number [facility] [address] [place] [address], [place] [phone] * Hemoglobin A1c (09/02/2024 10:32 AM EST) Hemoglobin A1C 5.8 <6.5 % LAB CHEMISTRY METHOD 09/02/2024 2:14 PM EST [facility] Mean Bld Glu Estim. 120 mg/dL LAB CHEMISTRY METHOD 09/02/2024 2:14 PM [facility] Blood Venous blood specimen / Unknown Venipuncture / Unknown 09/02/2024 10:32 AM EST 09/02/2024 10:32 AM EST us [facility] BLOOD ORDERABLES Final Result Performing Organization Address City/[facility]/ZIP Co de Phone Number [facility] [address] [place] [address], [place] [phone] * (ABNORMAL) Basic metabolic panel (09/02/2024 10:32 AM EST) Sodium 141 133 - 145 mmol/L LAB CHEMISTRY METHOD 09/02/2024 12:32 PM [facility] Potassium 4.2 3.5 - 5.5 mmol/L LAB CHEMISTRY METHOD 09/02/2024 12:32 PM EST [facility] Chloride 106 96 - 110 mmol/L LAB CHEMISTRY METHOD 09/02/2024 12:32 PM [facility] CO2 28 21 - 32 mmol/L LAB CHEMISTRY METHOD 09/02/2024 12:32 PM [facility] Anion Gap 7 3 - 11 LAB CHEMISTRY METHOD 09/02/2024 12:32 PM [facility] Glucose 101(H) 70 - 100 mg/dL LAB CHEMISTRY METHOD 09/02/2024 12:32 PM [facility] BUN 17 5 - 25 mg/dL LAB CHEMISTRY METHOD 09/02/2024 12:32 PM [facility] Creatinine 0.73 0.70 - 1.30 mg/dL LAB CHEMISTRY METHOD 09/02/2024 12:32 PM [facility] eGFR 118 >=60 mL/min/1. 73m2 LAB CHEMISTRY METHOD 09/02/2024 12:32 PM [facility] Comment:Calculation based on the Chronic Kidney Disease Epidemiology Collaboration (CKD-EPI) equation refit without adjustment for race. BUN/Creatinine Ratio 23.3 LAB CHEMISTRY METHOD 09/02/2024 12:32 PM [facility] Calcium 9.1 8.5 - 10.5 mg/dL LAB CHEMISTRY METHOD 09/02/2024 12:32 PM [facility] Blood Venous blood specimen / Unknown Venipuncture / Unknown 09/02/2024 10:32 AM EST 09/02/2024 10:32 AM EST [facility] BLOOD ORDERABLES Final Result [facility] [address] [place] [address], * Urine Albumin Creatinine Ratio (11/12/2023) Urine Albumin Creatinine Ratio Abstracted Historical Provider HEALTH MAINTENANCE Final Result * Diabetes Foot Exam (11/12/2023) Diabetes: Annual Foot Exam Abstracted Historical Provider HEALTH MAINTENANCE Final Result from Last 3 Months or Most Recently Relevant to Health Maintenance Insurance [facility] [place] [id number] Care Teams Lead Javascript Engineer Relationship Specialty Start Date End Date Usama Gonzalez MD [address] [place] [id number] PCP - General Internal Medicine 04/23/21
== END 2025-04-27 10:54 | disposition home or self-care (01) ==
LOC: HO.HGS 10:35
PROVIDERS: PCP Internal Medicine; Visit Provider Surgery
DX: K64.8 Other hemorrhoids (principal)
CPT/HCPCS: 46600

== ENCOUNTER → 2025-04-27 10:34 | Outpatient (BNVA) | payer OTHER, SELFPAY | PROVIDERS: PCP Internal Medicine; Visit Provider Surgery | DX: K64.8 Other hemorrhoids (principal) | CPT/HCPCS: 46600 ==